=== PATIENT | male | born 1970 | race Two or more races ===

== ENCOUNTER 2016-12-18 00:21 | Emergency (ER) | payer MEDICAID ==
[~2016-12-18] VITALS: Ht 185.4 cm; Wt 88.5 kg
[~2016-12-18 00:21] MED LIST: ENALAPRIL PO; INSLISPI SC; METFORMIN PO
[2016-12-18] MEDS ORDERED: cloNIDine HCL 0.1 MG TAB ONE (00:33)
[2016-12-18] MEDS ORDERED: cloNIDine HCL 0.1 MG TAB PO ONE (00:45)
[2016-12-18 01:30] VITALS: BP 155/100
== END 2016-12-18 04:51 | disposition left against medical advice (07) ==
LOC: ER 00:24
DX: H92.01 Otalgia, right ear (principal); R73.9 Hyperglycemia, unspecified; Z53.21 Procedure and treatment not carried out due to patient leaving prior to being seen by health care provider
CPT/HCPCS: 82962

== ENCOUNTER 2018-01-27 19:23 | Observation (INO) | payer MEDICAID ==
[~2018-01-27] VITALS: Ht 185.4 cm; Wt 88.5 kg
[2018-01-27] MEDS ORDERED: SODIUM CHLORIDE 0.9% 1,000 ML IV ONE (20:15)
[2018-01-27 20:18] LABS: Urine Bacteria NONE SEEN /hpf (None Seen); Urine Blood Negative /uL (Negative); Urine WBC <1 /hpf (0 - 3)
[2018-01-27 20:42] LABS: Basophils # (auto) 0.1 uL; Eosinophils # (auto) 0.1 uL; Eosinophils % (auto) 1.7 % (0.0-7.0); Hematocrit 41.2 % (41.0-53.0); Lymphocytes # (auto) 2.3 uL; Lymphocytes % (auto) 35.6 % (10.0-50.0); Mean Corpuscular Hemoglobin 30.4 pg (28.0-32.0); Mean Corpuscular Volume 89.5 fL (80.0-100.0); Monocytes # (auto) 0.4 uL; Monocytes % (auto) 6.4 % (0.0-12.0); Neutrophils # (auto) 3.5 uL; Neutrophils % (auto) 55.3 % (37.0-80.0); Nucleated Red Blood Cells % 0.1 %; Platelet Count (auto) 271 10^3/uL (140-450); Red Blood Cells 4.61 10^6/uL (4.5-5.90); Red Cell Distribution Width 12.5 % (11.8-14.3); White Blood Cell 6.4 10^3/uL (4.4-10.8)
[2018-01-27] MEDS ORDERED: SODIUM CHLORIDE 0.9% 1,000 ML IVB ONE (20:50)
[2018-01-27 21:00] LABS: Albumin 3.7 g/dL (3.4-5.0); BUN/Creatinine Ratio 14.2; Bilirubin, Total 0.3 mg/dL (0.2-1.0); Calcium 8.7 mg/dL (8.5-10.1); Magnesium 2.3 mg/dL (1.6-2.6); Potassium 4.1 mmol/L (3.5-5.1); Total Protein 7.1 g/dL (6.4-8.2)
[2018-01-27] MEDS ORDERED: InsuLIN REG 1unit/0.01ml Soln (100units/ml) IV ONE (22:15)
[2018-01-27] MEDS ORDERED: InsuLIN REG 1unit/0.01ml Soln (100units/ml) SC ONE (22:30)
[2018-01-28 00:27] VITALS: BP 148/95
== END 2018-01-28 00:37 | disposition home or self-care (01) | DRG 420 ==
LOC: ER 19:23 → OVERFLOW 20:51 → ER 01-28 00:37
PROVIDERS: ADMIT Family Medicine; ATTEND Family Medicine
DX: E11.65 Type 2 diabetes mellitus with hyperglycemia (principal); I10 Essential (primary) hypertension; F17.210 Nicotine dependence, cigarettes, uncomplicated; Z91.19 Patient's noncompliance with other medical treatment and regimen; Z82.49 Family history of ischemic heart disease and other diseases of the circulatory system; Z83.3 Family history of diabetes mellitus; Z79.4 Long term (current) use of insulin
CPT/HCPCS: 36415; 71045; 80053; 81001; 82010; 82962; 83735; 85025; 93005; 96360; 96361; 96372; 99285; G0378; J1815; J7030

== ENCOUNTER 2019-06-28 18:21 | Inpatient (IN) | payer MEDICAID ==
[~2019-06-28] VITALS: Ht 185.4 cm; Wt 89.3 kg
[2019-06-28] MEDS ORDERED: SODIUM CHLORIDE 0.9% 1,000 ML IV ONE (20:18)
[2019-06-28] MEDS ORDERED: InsuLIN REG 1unit/0.01ml Soln (100units/ml) IV ONE (20:30)
[2019-06-28] MEDS ORDERED: CLINDAMYCIN 600MG IV 50 ML IV ONE (20:30)
[2019-06-28 20:45] LABS: Basophils # (auto) 0.1 uL; Basophils % (auto) 0.6 % (0.0-2.0); Eosinophils # (auto) 0.1 uL; Eosinophils % (auto) 1.5 % (0.0-7.0); Hemoglobin 12.2 g/dL (13.5-17.5); Lymphocytes # (auto) 1.8 uL; Lymphocytes % (auto) 22.8 % (10.0-50.0); Mean Corpuscular Volume 88.3 fL (80.0-100.0); Monocytes # (auto) 0.6 uL; Monocytes % (auto) 7.6 % (0.0-12.0); Neutrophils # (auto) 5.4 uL; Neutrophils % (auto) 67.5 % (37.0-80.0); Platelet Count (auto) 245 10^3/uL (140-450); Red Blood Cells 4.08 10^6/uL (4.5-5.90); Red Cell Distribution Width 12.2 % (11.8-14.3)
[2019-06-28 21:10] LABS: Urine Bacteria NONE SEEN /hpf (None Seen); Urine Blood Negative /uL (Negative); Urine Specific Gravity 1.034 (1.001-1.035); Urine WBC 9 /hpf (0 - 3)
[2019-06-28 21:15] LABS: Alanine Aminotransferase 22 U/L (16-61); Albumin 2.6 g/dL (3.4-5.0); Anion Gap 8 (5-15); Blood Urea Nitrogen 12 mg/dL (7-18); Calcium 7.9 mg/dL (8.5-10.1); Carbon Dioxide 26 mmol/L (21-32); Chloride 100 mmol/L (98-107); Magnesium 2.2 mg/dL (1.6-2.6); Potassium 3.8 mmol/L (3.5-5.1); Sodium 134 mmol/L (136-145)
[2019-06-28 21:24] LABS: Alkaline Phosphatase 152 U/L (45-117); Aspartate Aminotransferase 15 U/L (15-37); Bilirubin, Total 0.3 mg/dL (0.2-1.0); GFR African American 92 mL/min; GFR Non-African American 76 mL/min; Total Protein 6.3 g/dL (6.4-8.2)
[2019-06-28 21:36] LABS: Glucose 550 mg/dL (74-106)
[2019-06-28 23:22] LABS: Alcohol, Urine < 3.0 mg/dL (0-5); Amphetamine Screen, Urine POSITIVE (NEGATIVE); Barbiturate Scree,Urine NEGATIVE (NEGATIVE); Benzodiazephine Screen, Urine NEGATIVE (NEGATIVE); Cannabinoid Screen, Urine NEGATIVE (NEGATIVE); Cocaine Screen, Urine NEGATIVE (NEGATIVE); Opiate Scree,Urine NEGATIVE (NEGATIVE); Phencyclidine Screen, Urine NEGATIVE (NEGATIVE)
[2019-06-29] MEDS ORDERED: cefTRIAXone 1GM/50ML D5W 50 ML IV ONE (00:45)
[2019-06-29] MEDS ORDERED: ACETAMINOPHEN 325 MG TAB PO PRN (00:45)
[2019-06-29] MEDS ORDERED: DEXTROSE (50%) 50ML SYRG IV PRN (00:45)
[2019-06-29] MEDS ORDERED: ONDANSETRON HCL 4 MG/2 ML VIAL IV PRN (00:45)
[2019-06-29] MEDS ORDERED: TEMAZEPAM 15 MG CAP PO PRN (00:45)
[2019-06-29] MEDS: cefTRIAXone 1GM/50ML D5W 50 ML IV SCH (01:20)
--- NOTE | 2019-06-29 03:00 | NUR ---
MS admit from ER pt arrive awake, alert and oriented vi stretcher and was able to slide onto bed without incident. pt bed locked, low and 2xrails up. pt reports "i just wanna sleep", pt completed admit assessment without issue. pt has no open wounds, does have 4+ edema right LE, 3+ left LE. pt skin is tight. pt denies any pain unless palpated. pt oriented to this nurse as well as bed controls and use of control, call light. pt updated on plan of care, no questions at this time. call light in reach, will round on pt q1hr and prn.
[2019-06-29 05:00] VITALS: BP 142/94
[2019-06-29] MEDS: HYDROcodone-ACET 5/325MG TAB PO PRN ×2 (05:34→13:13)
[2019-06-29] MEDS: CLINDAMYCIN 600MG IV 50 ML IV SCH ×3 (05:34→22:31)
[2019-06-29] MEDS: ACCU-CHEK COMFORT CURVE STRIP VI SCH ×3 (06:51→17:41)
[2019-06-29] MEDS: InsuLIN REG 1unit/0.01ml Soln (100units/ml) SC SCH ×3 (06:52→17:41)
--- NOTE | 2019-06-29 07:08 | NUR ---
Opening Shift Note Assumed care of patient, awake and alert. No S/S of distress/SOB or pain. Instructed on POC and to call for assist PRN, will continue to monitor for changes Q1hr and PRN.
[2019-06-29 08:58] VITALS: BP 138/93
[2019-06-29] MEDS: FAMOTIDINE 20 MG TAB PO SCH ×2 (09:34→22:31)
[2019-06-29] MEDS: ENALAPRIL MALEATE 10 MG TAB PO SCH ×2 (09:34→22:32)
[2019-06-29 12:00] VITALS: BP 143/102
[2019-06-29] MEDS ORDERED: METOPROLOL SUCCINATE XL 50 MG TAB PO ONE (12:45)
[2019-06-29] MEDS ORDERED: INSULIN 70/30 1unit/0.01ml Susp (100units/ml) SC ONE (13:15)
[2019-06-29] MEDS ORDERED: INSULIN 70/30 1unit/0.01ml Susp (100units/ml) SC SCH (13:15)
[2019-06-29 17:00] VITALS: BP 131/86
[2019-06-29] MEDS: INSULIN 70/30 1unit/0.01ml Susp (100units/ml) SC SCH (17:30)
--- NOTE | 2019-06-29 19:23 | NUR ---
Change of shift given to epic cupid analyst RN. No distress noted.
--- NOTE | 2019-06-29 20:05 | NUR ---
open note assumed care of pt. upon entering room, pt eyes closed, breathing even and unlabored on room air. pt easily woke to his name being called. pt alert and oriented x4. pt denies any pain at this time. pt updated on plan of care, no additional questions. bed locked, low and 2x rails up. call light in reach, encouraged to call as needed. pt right back to sleep after conclusion of dialog with nurse. will round q1hr and prn.
[2019-06-29 22:00] VITALS: BP 125/78
[2019-06-30] MEDS: InsuLIN REG 1unit/0.01ml Soln (100units/ml) SC SCH ×5 (00:20→23:57)
[2019-06-30] MEDS: ACCU-CHEK COMFORT CURVE STRIP VI SCH ×5 (00:20→23:59)
[2019-06-30] MEDS: cefTRIAXone 1GM/50ML D5W 50 ML IV SCH (01:50)
[2019-06-30 04:36] LABS: Basophils # (auto) 0 uL; Basophils % (auto) 0.5 % (0.0-2.0); Eosinophils # (auto) 0.1 uL; Eosinophils % (auto) 1.4 % (0.0-7.0); Lymphocytes # (auto) 1.8 uL; Mean Corpuscular Hemoglobin 30.4 pg (28.0-32.0); Mean Corpuscular Hgb Conc. 34.4 g/dL (32.0-36.0); Mean Corpuscular Volume 88.3 fL (80.0-100.0); Monocytes # (auto) 0.6 uL; Monocytes % (auto) 7.4 % (0.0-12.0); Neutrophils % (auto) 69.7 % (37.0-80.0); Platelet Count (auto) 227 10^3/uL (140-450); Red Blood Cells 3.96 10^6/uL (4.5-5.90); Red Cell Distribution Width 12.4 % (11.8-14.3); White Blood Cell 8.6 10^3/uL (4.4-10.8)
[2019-06-30 05:08] LABS: Potassium 3.8 mmol/L (3.5-5.1)
[2019-06-30 05:12] LABS: BUN/Creatinine Ratio 12.8; Calcium 6.9 mg/dL (8.5-10.1)
[2019-06-30] MEDS: CLINDAMYCIN 600MG IV 50 ML IV SCH ×3 (05:50→22:18)
[2019-06-30 06:18] VITALS: BP 126/76
[2019-06-30] MEDS: INSULIN 70/30 1unit/0.01ml Susp (100units/ml) SC SCH ×3 (07:53→17:30)
[2019-06-30 09:00] VITALS: BP 134/81
[2019-06-30] MEDS: ENALAPRIL MALEATE 10 MG TAB PO SCH ×2 (09:32→22:18)
[2019-06-30] MEDS: METOPROLOL SUCCINATE XL 50 MG TAB PO SCH (09:32)
[2019-06-30] MEDS: FAMOTIDINE 20 MG TAB PO SCH ×2 (09:32→22:18)
[2019-06-30 12:57] LABS: Cholesterol 126 mg/dL (< 200); Triglycerides 58 mg/dL (< 150)
[2019-06-30 12:59] LABS: HDL Cholesterol 59 mg/dL (40-59); LDL Cholesterol 56 mg/dL (< 100)
[2019-06-30 13:00] VITALS: BP 112/63
--- NOTE | 2019-06-30 13:27 | NUR ---
Spoke with Stress lab. Patient will not have a stress test today. Plan for procedure tomorrow.
[2019-06-30 17:27] VITALS: BP 122/64
--- NOTE | 2019-06-30 19:12 | NUR ---
Change of shift given to injection molding operator RN. No distress noted.
--- NOTE | 2019-06-30 19:30 | NUR ---
OPENING NOTE REPORT RECEIVED FROM DAY SHIFT RN PATIENT IS SLEEPING AT THIS TIME. PHYSICAL ASSESSMENT- SEE INTERVENTIONS. URINAL AT BEDSIDE. POC DISCUSSED AND ALL QUESTIONS ANSWERED. DISCUSSED WITH PATIENT ORDER FOR STRESS TEST TOMORROW. EDUCATED PATIENT TO REMAIN NPO AFTER MIDNIGHT, PATIENT VERBALIZED UNDERSTANDING. IV TO LEFT FOREARM LEAKING. WILL D/C AND START NEW LINE. CALL LIGHT WITHIN REACH.
--- NOTE | 2019-06-30 20:30 | NUR ---
IV removal LEFT FOREARM DUE TO LEAKING IV DC'd with clean sterile technique, catheter fully intact. Pressure dressing applied to site. Patient tolerated well.
--- NOTE | 2019-06-30 21:00 | NUR ---
IV insertion IV access obtained, via clean sterile technique by inserting 20 gauge catheter at RIGHT HAND after 1 attempt. IV secured properly. No trauma to site. Patient tolerated well.
[2019-06-30 22:00] VITALS: BP 133/83
--- NOTE | 2019-06-30 22:00 | NUR ---
IV insertion IV access obtained, via clean sterile technique by inserting 20 gauge catheter at LEFT HAND after 1 attempt. IV secured properly. No trauma to site. Patient tolerated well.
[2019-07-01] MEDS: cefTRIAXone 1GM/50ML D5W 50 ML IV SCH (00:53)
[2019-07-01] MEDS: InsuLIN REG 1unit/0.01ml Soln (100units/ml) SC SCH ×3 (06:00→18:00)
[2019-07-01 06:01] VITALS: BP 120/73
[2019-07-01] MEDS: CLINDAMYCIN 600MG IV 50 ML IV SCH ×3 (06:02→21:37)
[2019-07-01] MEDS: ACCU-CHEK COMFORT CURVE STRIP VI SCH ×3 (06:02→18:00)
--- NOTE | 2019-07-01 06:57 | NUR ---
CLOSING PATIENT IS SLEEPING. NO S/S OF DISTRESS. PATIENT NPO SINCE MIDNIGHT, AWAITING STRESS TEST TODAY. TWO IV'S IN PLACE FOR PROCEDURE. CALL LIGHT WITHIN REACH WILL ENDORSE CARE TO AM SHIFT RN
[2019-07-01] MEDS: INSULIN 70/30 1unit/0.01ml Susp (100units/ml) SC SCH ×3 (08:00→17:30)
[2019-07-01] MEDS ORDERED: ADENOSINE 74 MG in GIVE UN-DILUTED 0 ML IV STA (08:22)
[2019-07-01 09:00] VITALS: BP 139/88
--- NOTE | 2019-07-01 09:59 | NUR ---
[employer] life vest order faxed to [employer] (requesting authorization) along with supporting clinical documentation.
[2019-07-01] MEDS: FAMOTIDINE 20 MG TAB PO SCH ×2 (10:16→21:38)
[2019-07-01] MEDS: METOPROLOL SUCCINATE XL 50 MG TAB PO SCH (10:17)
[2019-07-01] MEDS: ENALAPRIL MALEATE 10 MG TAB PO SCH ×2 (10:17→21:38)
[2019-07-01 13:00] VITALS: BP 122/85
[2019-07-01] MEDS ORDERED: FUROSEMIDE 40 MG TAB PO ONE (13:15)
[2019-07-01] MEDS ORDERED: ENAL10TA2 PO (13:17)
[2019-07-01] MEDS ORDERED: METO-6 PO (13:17)
--- NOTE | 2019-07-01 14:56 | NUR ---
Estimated needs based on CBW 88 kg-adult maintenance 3096-6288 kcal (23-25 kcal/kg) 70-88 g protein (0.8-1.0 g/kg) Addendum: 07/01/19 at [address] Amended: Links added.
--- NOTE | 2019-07-01 15:08 | NUR ---
I received a phone call from Lucita at [facility] [phone] letting me know that the authorization number for [employer] life vest is [id number]. Per Tha at [facility], they already have the authorization from [facility].
--- NOTE | 2019-07-01 16:32 | NUR ---
Life vest company at bedside fitting patient for vest. Per loss control representative, patient has life vest and may be discharged home.
[2019-07-01 17:00] VITALS: BP 107/74
--- NOTE | 2019-07-01 17:14 | NUR ---
Received call from Carla Hess NP. Per [employer], she spoke with Dr. Torres. Stress test revealed reversible ischemia. PATIENT IS NOT CLEARED FOR DISCHARGE. Patient upgraded to telemetry. collection specialist notified.
--- NOTE | 2019-07-01 19:18 | NUR ---
Change of shift given to overnight cashier RN. No distress noted.
--- NOTE | 2019-07-01 19:20 | NUR ---
OPENING NOTE REPORT RECEIVED FROM DAY SHIFT RN PATIENT IS A/OX4 RESTING IN BED, ABLE TO ANSWER ALL QUESTIONS APPROPRIATELY. PATIENT IS NOW ON TELE #[id number], RUNNING SINUS RHYTHM. PATIENT HAS [employer] LIFE VEST ON. POC DISCUSSED WITH PATIENT, PATIENT VERBALIZED UNDERSTANDING. CALL LIGHT AND ALL PERSONAL BELONGINGS WITHIN REACH. WILL MONITOR Q1H PRN THROUGHOUT SHIFT.
[2019-07-01 22:00] VITALS: BP 128/84
[2019-07-02] MEDS: cefTRIAXone 1GM/50ML D5W 50 ML IV SCH (00:55)
[2019-07-02 05:00] VITALS: BP 115/76
[2019-07-02] MEDS: InsuLIN REG 1unit/0.01ml Soln (100units/ml) SC SCH ×4 (06:00→17:56)
[2019-07-02] MEDS: ACCU-CHEK COMFORT CURVE STRIP VI SCH ×4 (06:20→17:57)
[2019-07-02] MEDS: CLINDAMYCIN 600MG IV 50 ML IV SCH ×3 (06:20→21:38)
--- NOTE | 2019-07-02 07:02 | NUR ---
CLOSING NOTE PATIENT IS SLEEPING. ZOLL VEST ON. NO S/S OF DISTRESS. CALL LIGHT WITHIN REACH WILL ENDORSE CARE TO AM SHIFT RN
[2019-07-02 08:00] VITALS: BP 140/91
[2019-07-02] MEDS: INSULIN 70/30 1unit/0.01ml Susp (100units/ml) SC SCH ×3 (08:36→17:55)
[2019-07-02] MEDS: METOPROLOL SUCCINATE XL 50 MG TAB PO SCH (10:00)
[2019-07-02] MEDS: FUROSEMIDE 40 MG TAB PO SCH (10:00)
[2019-07-02] MEDS: ENALAPRIL MALEATE 10 MG TAB PO SCH ×2 (10:01→21:38)
[2019-07-02] MEDS: FAMOTIDINE 20 MG TAB PO SCH ×2 (10:01→21:38)
[2019-07-02 12:00] VITALS: BP 105/77
[2019-07-02 16:43] VITALS: BP 120/72
--- NOTE | 2019-07-02 19:45 | NUR ---
OPENING PATIENT IS A/OX4, SITTING UP IN BED, TALKING WITH FRIEND AT BEDSIDE. ZOLL LIFE VEST ON PATENT. POC DISCUSSED FOR TONIGHT, ALL QUESTIONS ANSWERED. ALL PERSONAL BELONGINGS WITHIN REACH. WILL MONITOR Q1H PRN THROUGHOUT SHIFT.
[2019-07-02 22:00] VITALS: BP 118/72
[2019-07-03] MEDS: ACCU-CHEK COMFORT CURVE STRIP VI SCH ×4 (00:05→18:03)
[2019-07-03] MEDS: InsuLIN REG 1unit/0.01ml Soln (100units/ml) SC SCH ×5 (00:05→23:59)
[2019-07-03] MEDS: cefTRIAXone 1GM/50ML D5W 50 ML IV SCH (00:47)
[2019-07-03 05:00] VITALS: BP 124/79
[2019-07-03] MEDS: CLINDAMYCIN 600MG IV 50 ML IV SCH ×3 (06:26→21:44)
--- NOTE | 2019-07-03 06:58 | NUR ---
CLOSING PATIENT IS RESTING IN BED. NO S/S OF DISTRESS. ZO[employer] LIFE VEST ON. CALL LIGHT WITHIN REACH. WILL ENDORSE CARE TO AM SHIFT RN
--- NOTE | 2019-07-03 07:47 | NUR ---
Opening Shift Note Assumed care of patient, asleep but easily aroused. No S/S of distress/SOB or pain. Instructed on POC and to call for assist PRN, will continue to monitor for changes Q1hr and PRN.
[2019-07-03] MEDS: INSULIN 70/30 1unit/0.01ml Susp (100units/ml) SC SCH ×3 (08:16→18:02)
[2019-07-03] MEDS: FAMOTIDINE 20 MG TAB PO SCH ×2 (09:28→21:44)
[2019-07-03] MEDS: METOPROLOL SUCCINATE XL 50 MG TAB PO SCH (09:28)
[2019-07-03] MEDS: FUROSEMIDE 40 MG TAB PO SCH (09:29)
[2019-07-03] MEDS: ENALAPRIL MALEATE 10 MG TAB PO SCH ×2 (09:29→21:44)
[2019-07-03 09:58] VITALS: BP 127/77
[2019-07-03 12:48] VITALS: BP 121/83
[2019-07-03 16:29] VITALS: BP 115/72
--- NOTE | 2019-07-03 17:25 | NUR ---
Off Unit Patient ambulated off unit to smoke.
--- NOTE | 2019-07-03 17:43 | NUR ---
On Unit Patient returned to the unit in no obvious distress.
--- NOTE | 2019-07-03 18:34 | NUR ---
Patient ambulating on unit uncomplaining.
[2019-07-03 21:42] VITALS: BP 130/82
[2019-07-04] MEDS: cefTRIAXone 1GM/50ML D5W 50 ML IV SCH (01:54)
[2019-07-04 04:40] VITALS: BP 127/78
[2019-07-04] MEDS: CLINDAMYCIN 600MG IV 50 ML IV SCH (06:09)
[2019-07-04] MEDS: ACCU-CHEK COMFORT CURVE STRIP VI SCH ×4 (06:10→18:02)
[2019-07-04] MEDS: InsuLIN REG 1unit/0.01ml Soln (100units/ml) SC SCH ×3 (06:24→18:02)
--- NOTE | 2019-07-04 07:31 | NUR ---
CLOSING NOTE REPORT GIVEN TO DAY SHIFT NURSE. PATIENT LAYING IN BED CALMLY, CALL LIGHT WITHIN REACH.
--- NOTE | 2019-07-04 07:35 | NUR ---
Opening Shift Note Assumed care of patient, asleep but easily aroused. No S/S of distress/SOB or pain. Instructed on POC and to call for assist PRN, will continue to monitor for changes Q1hr and PRN. Will follow up with laboratory scientist if patient is on schedule for procedure today. No orders in yet.
--- NOTE | 2019-07-04 07:38 | NUR ---
Head Still Operator Called Head Still Operator, patient is not on schedule for procedure today.
[2019-07-04] MEDS: INSULIN 70/30 1unit/0.01ml Susp (100units/ml) SC SCH ×3 (08:14→18:03)
[2019-07-04 09:00] VITALS: BP 119/80
[2019-07-04] MEDS ORDERED: HYDROcodone-ACET 5/325MG TAB PO PRN (09:45)
[2019-07-04] MEDS: METOPROLOL SUCCINATE XL 50 MG TAB PO SCH (10:00)
[2019-07-04] MEDS: FUROSEMIDE 40 MG TAB PO SCH (10:00)
[2019-07-04] MEDS: FAMOTIDINE 20 MG TAB PO SCH (10:00)
[2019-07-04] MEDS: ENALAPRIL MALEATE 10 MG TAB PO SCH (10:00)
[2019-07-04] MEDS ORDERED: SODIUM CHLORIDE 0.9% 1,000 ML IV SCH (10:41)
[2019-07-04] MEDS ORDERED: METOCLOPRAMIDE HCL 5MG/ml INJ 2ml VIAL IV ONE (10:45)
--- NOTE | 2019-07-04 10:55 | NUR ---
Patient taken to Optometric Coordinator for heart cath. Consents to be signed.
[2019-07-04 11:00] LABS: Basophils # (auto) 0.1 uL; Basophils % (auto) 0.7 % (0.0-2.0); Eosinophils # (auto) 0.2 uL; Eosinophils % (auto) 2.5 % (0.0-7.0); Hematocrit 33.1 % (41.0-53.0); Hemoglobin 11.3 g/dL (13.5-17.5); Lymphocytes # (auto) 1.4 uL; Lymphocytes % (auto) 19.2 % (10.0-50.0); Mean Corpuscular Hemoglobin 30.4 pg (28.0-32.0); Mean Corpuscular Hgb Conc. 34.2 g/dL (32.0-36.0); Monocytes # (auto) 0.6 uL; Monocytes % (auto) 7.6 % (0.0-12.0); Neutrophils # (auto) 5.1 uL; Platelet Count (auto) 401 10^3/uL (140-450); Red Blood Cells 3.72 10^6/uL (4.5-5.90); Red Cell Distribution Width 12.1 % (11.8-14.3); White Blood Cell 7.4 10^3/uL (4.4-10.8)
[2019-07-04 11:17] LABS: Albumin 2.3 g/dL (3.4-5.0); BUN/Creatinine Ratio 16.1; Calcium 8.5 mg/dL (8.5-10.1); Potassium 4.1 mmol/L (3.5-5.1)
[2019-07-04 11:20] LABS: Bilirubin, Total 0.8 mg/dL (0.2-1.0)
[2019-07-04 11:29] LABS: INR < 0.93 (0.9-1.15); Partial Thromboplastin Time 27.3 sec (23.64-32.05)
[2019-07-04] MEDS ORDERED: LIDOCAINE 2%HCL (LOCAL ANESTH.) INJ 20ML MDV ONE (11:55)
[2019-07-04] MEDS ORDERED: IOHEXOL 350 MG/ML 100ML IJ ONE ×2 (11:55→12:28)
[2019-07-04] MEDS ORDERED: ANGIOMAX 250 MG VIAL IV ONE (12:01)
[2019-07-04] MEDS ORDERED: fentaNYL CITRATE 100 MCG/2 ML VL ONE (12:01)
[2019-07-04] MEDS ORDERED: MIDAZOLAM HCL 1MG/1ML-2 ML VIAL ONE (12:02)
[2019-07-04] MEDS ORDERED: SODIUM CHL 0.9% 50 ML ONE (12:02)
[2019-07-04] MEDS ORDERED: ASPirin 325 MG TAB ONE (12:38)
[2019-07-04] MEDS ORDERED: CLOPIDOGREL 300 MG TAB ONE (12:38)
[2019-07-04 13:00] VITALS: BP 122/79
[2019-07-04] MEDS ORDERED: CLOP75TA28 PO (13:34)
[2019-07-04] MEDS ORDERED: ASPI81CH43 PO (13:34)
[2019-07-04] MEDS ORDERED: ATOR20TA50 PO (13:34)
--- NOTE | 2019-07-04 13:35 | NUR ---
On Unit Patient returned to unit from Control Panel Operator. Awake and alert, no complaints of pain or SOB. Dressing to right groin dry and intact. Call light placed within reach and patient instructed to call for assistance. Patient can sit up at 1345.
--- NOTE | 2019-07-04 13:45 | NUR ---
Accu Check Blood sugar check 68. Patient given meal tray.
[2019-07-04 15:23] VITALS: BP 122/79
--- NOTE | 2019-07-04 15:45 | NUR ---
D/C Cardiology Clearance Received telephone clearance from Carla Hess for patient. He can be discharged once he ambulates and there is no bleeding to site. Patient is currently asleep, will have him ambulate once he is awake.
--- NOTE | 2019-07-04 16:27 | NUR ---
PCP follow up appointment Unable to make follow up appointment with PCP for patient. He goes to [facility]. Patient told me that he is going to change his primary care doctor, but he was informed of need to follow up with PCP lauro 1 week and also to get referral for Assembly Loader. Attempt to make appointment with Dr. Torres's office was unsuccessful. They said patient needed a referral.
[2019-07-04 17:00] VITALS: BP 129/83
--- NOTE | 2019-07-04 17:50 | NUR ---
Discharge instructions given as ordered. Encourage to follow up with PMD as instructed. All questions and concerns addressed. Patient verbalized understanding. Medication reconciliation form completed and copy given to patient. IV removed with catheter intact, pressure dressing applied. Telemetry unit returned to [facility]. Patient awaiting transport.
--- NOTE | 2019-07-04 21:25 | NUR ---
Discharge instructions given as ordered. Encourage to follow up with PMD as instructed. All questions and concerns addressed. Patient verbalized understanding. Medication reconciliation form completed and copy given to patient. IV removed with catheter intact, pressure dressing applied, gallego catheter removed. Telemetry unit returned to ICU.Patient's personal pocket knife returned to him upon discharge. Patient taken to vehicle via wheelchair with all personal belongings, accompanied by staff and family member. No distress noted at time of departure.
[2019-07-04] MEDS ORDERED: ATORVASTATIN 20 MG TAB PO SCH (22:00)
[2019-07-05] MEDS ORDERED: CLOPIDOGREL BISULFATE 75 MG TAB PO SCH (10:00)
[2019-07-05] MEDS ORDERED: ASPirin 81 mg TAB PO SCH (10:00)
== END 2019-07-04 21:25 | disposition home or self-care (01) | DRG 175 ==
LOC: EDBD 18:21 → ER 18:24 → CENTRAL 18:25 → TELE-CENTR 07-01 17:29
PROVIDERS: ADMIT Nurse Practitioner; ATTEND Internal Medicine
PROC: 027034Z Dilation of Coronary Artery, One Artery with Drug-eluting Intraluminal Device, Percutaneous Approach (ICD-10-PCS; principal; 2019-07-04)
PROC: 4A023N7 Measurement of Cardiac Sampling and Pressure, Left Heart, Percutaneous Approach (ICD-10-PCS; 2019-07-04)
PROC: B2111ZZ Fluoroscopy of Multiple Coronary Arteries using Low Osmolar Contrast (ICD-10-PCS; 2019-07-04)
PROC: B2151ZZ Fluoroscopy of Left Heart using Low Osmolar Contrast (ICD-10-PCS; 2019-07-04)
DX: I11.0 Hypertensive heart disease with heart failure (principal); E43 Unspecified severe protein-calorie malnutrition; G92 Toxic encephalopathy; E11.21 Type 2 diabetes mellitus with diabetic nephropathy; I50.43 Acute on chronic combined systolic (congestive) and diastolic (congestive) heart failure; F15.10 Other stimulant abuse, uncomplicated; E11.65 Type 2 diabetes mellitus with hyperglycemia; L03.115 Cellulitis of right lower limb; L03.116 Cellulitis of left lower limb; F12.90 Cannabis use, unspecified, uncomplicated; E78.00 Pure hypercholesterolemia, unspecified; N39.0 Urinary tract infection, site not specified; Z83.3 Family history of diabetes mellitus; Z82.49 Family history of ischemic heart disease and other diseases of the circulatory system; Z79.82 Long term (current) use of aspirin; Z79.02 Long term (current) use of antithrombotics/antiplatelets; Z91.19 Patient's noncompliance with other medical treatment and regimen; Z79.4 Long term (current) use of insulin; Z68.26 Body mass index [BMI] 26.0-26.9, adult; Z71.51 Drug abuse counseling and surveillance of drug abuser
CPT/HCPCS: 36415; 70450; 71045; 78452; 80048; 80053; 80061; 80307; 81001; 82010; 82962; 83036; 83605; 83735; 83880; 84484; 85025; 85379; 85610; 85730; 87040; 92928; 93005; 93017; 93306; 93458; 93925; 93970; 94761; 96361; 96365; 96372; 96375; C1887; G0378; J0153; J0696; J1815; J2250; J3490

== ENCOUNTER 2019-10-18 15:13 | Emergency (ER) | payer MEDICAID ==
[~2019-10-18] VITALS: Ht 185.4 cm; Wt 89.8 kg
[~2019-10-18 15:13] MED LIST changes: +ENAL10TA2 PO; -ENALAPRIL PO; +FLUC200T50 PO; +FURO40TA4 PO; +INSU70IN3 SC; -METFORMIN PO; +METO-6 PO; +POTA10TA51 PO
[2019-10-18] MEDS ORDERED: NITROGLYCERIN 50MG/250ML 250 ML IV ONE ×2 (15:20→17:30)
[2019-10-18] MEDS ORDERED: InsuLIN R (HUMAN) 100 UNITS in SODIUM CHL 0.9% 99 ML IV SCH ×2 (15:20→17:30)
[2019-10-18] MEDS ORDERED: DEXTROSE (50%) 50ML SYRG IV PRN (15:30)
[2019-10-18 16:07] LABS: Basophils % (auto) 0.9 % (0.0-2.0); Eosinophils # (auto) 0.1 uL; Eosinophils % (auto) 1.8 % (0.0-7.0); Lymphocytes # (auto) 1.2 uL; Lymphocytes % (auto) 21.6 % (10.0-50.0); Monocytes # (auto) 0.4 uL
[2019-10-18 16:12] LABS: Basophils # (auto) 0.1 uL; Hemoglobin 12.5 g/dL (13.5-17.5); Mean Corpuscular Hemoglobin 30.5 pg (28.0-32.0); Mean Corpuscular Hgb Conc. 33.7 g/dL (32.0-36.0); Mean Corpuscular Volume 90.4 fL (80.0-100.0); Monocytes % (auto) 6.5 % (0.0-12.0); Neutrophils # (auto) 3.9 uL; Neutrophils % (auto) 69.2 % (37.0-80.0); Platelet Count (auto) 478 10^3/uL (140-450); Red Blood Cells 4.09 10^6/uL (4.5-5.90); Red Cell Distribution Width 15.1 % (11.8-14.3); White Blood Cell 5.6 10^3/uL (4.4-10.8)
[2019-10-18 16:16] LABS: Calcium 8.6 mg/dL (8.5-10.1); Magnesium 2.2 mg/dL (1.6-2.6); Potassium 4.5 mmol/L (3.5-5.1)
[2019-10-18 16:28] LABS: Phosphorus 2.9 mg/dL (2.5-4.90)
[2019-10-18] MEDS ORDERED: ACCU-CHEK COMFORT CURVE STRIP VI SCH (16:30)
[2019-10-18] MEDS: SODIUM CHLORIDE 0.9% 1,000 ML IV SCH ×2 (17:35→18:00)
--- NOTE | 2019-10-18 17:45 | NUR ---
WOUND CARE NOTE: Wound care in to see patient per wound care request regarding "Rt Foot Cellulitis". Patient is 49 y/o male to E.D. due to Rt. Foot Pain. Patient is resting in ER bed #3. He's awake, alert and oriented. Patient is in no stated pain at this time. He's self turn and reposition and his Roberto score is 16. Patient recently at [facility] on 09/11/19 for Sepsis secondary to LE Cellulitis. He's discharge on 09/19/19 to SNF. During his stay, on 09/14/19, he undergone I&D of R Foot wound and removal of non-viable soft tissue with delayed closure with Dr. Higgins. Patient reported that he noted his R Foot wound worsened when he "didn't come back" to SNF "the time I'm supposed to". Noted patient's Rt. foot foot has three open incision. R dorsal foot wound measuring 2x0.5x2cm. Rt plantar foot wound two open incision measuring 2x0.3x3cm and 3x0.3x1.2cm. Wounds are red with yellow slough,bright red, edematous periwound, dark hyperpigmented skin to dorsal aspect of R foot. Minimal seropurulent drainage noted on old dressing, foul odor noted. Cleansed patient's Rt foot wounds with wound cleanser, patted dry with gauze, fill wound cavity with 1/4 inch iodoform packing strips, leaving an inch tail, covered with abd pads, wrapped with Kerlix and secured with tape. Patient tolerated well. Photograph of patient's R foot wounds are taken for reference. RECOMMENDATION: Nursing to continue Daily/PRN dressing change to R Foot wounds per MD order,Podiatry consult, Dietary consult, elevate affected extremity on pillows, redistribute pressure points with pillows, continue monitoring by wound care while patient is hospitalized. Addendum: 10/18/19 at 1854 by Nidia Abellar RN Amended: Links added.
[2019-10-18] MEDS: ACCU-CHEK COMFORT CURVE STRIP VI SCH ×3 (18:02→19:49)
[2019-10-18] MEDS ORDERED: SODIUM CHLORIDE 0.9% 1,000 ML IV SCH ×2 (19:20→21:20)
[2019-10-18] MEDS ORDERED: SODIUM CHLORIDE 0.9% 1,000 ML IV ONE (20:15)
[2019-10-18] MEDS ORDERED: InsuLIN REG 1unit/0.01ml Soln (100units/ml) SC ONE (20:15)
[2019-10-18] MEDS ORDERED: PIPERACILLIN-TAZOB 3.375GM 100 ML IV ONE (21:15)
[2019-10-18 21:54] LABS: BUN/Creatinine Ratio 12.8; Calcium 8.1 mg/dL (8.5-10.1); Potassium 3.7 mmol/L (3.5-5.1)
[2019-10-19 01:58] VITALS: BP 132/85
== END 2019-10-19 02:03 | disposition home or self-care (01) ==
LOC: EDBD 15:13 → ER 15:24
DX: L02.611 Cutaneous abscess of right foot (principal); M86.8X7 Other osteomyelitis, ankle and foot; M84.474A Pathological fracture, right foot, initial encounter for fracture; E11.65 Type 2 diabetes mellitus with hyperglycemia; I10 Essential (primary) hypertension
CPT/HCPCS: 36415; 36600; 73700; 80048; 82010; 82805; 82962; 83605; 83735; 83880; 83930; 84100; 84484; 85025; 87040; 87077; 87186; 87205; 96365; 96366; 96367; 96368; 96372; 99291; J1815; J2543